=== PATIENT | female | born 1955 | race Caucasian/White ===

== ENCOUNTER → 2016-05-31 | Outpatient (CLI) | payer BC | END | disposition home or self-care (01) | LOC: GMAJ 14:27 | PROVIDERS: ATTEND Family Medicine | DX: E03.9 Hypothyroidism, unspecified (principal) ==

== ENCOUNTER → 2016-08-18 | Outpatient (CLI) | payer BC ==
--- NOTE | 2016-08-18 10:33 | MAM ---
History: Well woman exam. Date of exam: 08/18/2016 Services provided: Bilateral full field digital screening mammography. CAD, the images were reviewed with R2 computer aided detection. FINDINGS: Glandular tissue is scattered glandular contour. Comparison with 2015 exam. No dominant mass, architectural distortion or clustered microcalcification. IMPRESSION: Benign exam Recommendation: Routine annual mammography BIRAD CATEGORY: 2 BENIGN Electronically signed by: Kelsy Toledo MD 08/18/2016 10:32 AM CDT
== END | disposition home or self-care (01) ==
LOC: MAMMO 07:55
PROVIDERS: ATTEND Family Medicine
DX: Z12.31 Encounter for screening mammogram for malignant neoplasm of breast (principal)

== ENCOUNTER → 2016-09-14 | Outpatient (CLI) | payer BC, SELFPAY ==
--- NOTE | 2016-09-14 13:55 | MRI ---
EXAM DESCRIPTION: Lumbar Spine w/o Contrast CLINICAL HISTORY: DISC DISPLACEMENT COMPARISON: None Available. TECHNIQUE: MRI of the lumbar spine is performed according to our usual protocol with axial and sagittal multi sequence imaging. FINDINGS: Normal alignment of the lumbar spine is noted. There is no acute fracture or destructive osseous lesion. The conus medullaris terminates normally. L1-2: Unremarkable L2-3: Unremarkable L3-4: Mild facet degeneration. No spinal canal, neuroforaminal narrowing or considerable disc disease L4-5: Moderate facet degeneration and ligamentum flavum thickening. No posterior disc pathology. No spinal canal or neuroforaminal narrowing. L5-S1: Moderate facet degeneration, left greater than right. No considerable posterior disc pathology. No spinal canal or neuroforaminal narrowing. IMPRESSION: 1. Today's exam demonstrates only facet degeneration from L3-4 through L5-S1. 2. No spinal canal or neuroforaminal narrowing. No considerable posterior disc pathology at any level. Electronically signed by: Jorge Sheldon MD 09/14/2016 1:56 PM CDT
== END | disposition home or self-care (01) ==
LOC: MRI 06:54
PROVIDERS: ATTEND Family Medicine
DX: M51.27 Other intervertebral disc displacement, lumbosacral region (principal)

== ENCOUNTER → 2017-01-05 | Outpatient (CLI) | payer BC | END | disposition home or self-care (01) | LOC: GMAJ 10:39 | PROVIDERS: ATTEND Family Medicine | DX: E03.9 Hypothyroidism, unspecified (principal) ==

== ENCOUNTER → 2017-06-07 | Outpatient (CLI) | payer BC | LOC: GMAJ 10:54 | PROVIDERS: ATTEND Family Medicine | DX: E03.9 Hypothyroidism, unspecified (principal) ==

== ENCOUNTER → 2017-09-26 | Outpatient (CLI) | payer BC | LOC: GMAJS 11:48 | PROVIDERS: ATTEND Physician Assistant | DX: R06.00 Dyspnea, unspecified (principal) ==

== ENCOUNTER → 2017-09-27 | Outpatient (CLI) | payer BC ==
--- NOTE | 2017-09-27 17:35 | MAM ---
EXAM DESCRIPTION: 3D Screening BILATERAL : Digital Mammography. CLINICAL HISTORY: 61 years Female SCREENING . No complaints. No family history of breast cancer. Childbirth. Postmenopausal. Has taken HRT. COMPARISON: 2-D digital screening bilateral study 08/18/2016. Report from prior examination also reviewed. TECHNIQUE: Bilateral CC and MLO projection full-field images, 3-D tomosynthesis digital mammographic technique. CAD not utilized. FINDINGS: The breast parenchymal density pattern is: Almost entirely fatty. No skin thickening or nipple retraction. Bilateral solitary microcalcifications. Left axillary lymph nodes. No focal, stellate mass or density, focal asymmetry , and no suspicious microcalcifications bilaterally. Stable mammograms compared to prior study, taking into account differences in mammographic technique IMPRESSION: BI-RADS CATEGORY: 2 - BENIGN FINDINGS. FOLLOW UP: Routine digital bilateral screening, one year interval from September 2017. Written communication explaining the IMPRESSION and follow-up, will be mailed to the patient and referring health care provider. According to the [employer], yearly mammograms are recommended starting at age 40 and continuing as long as a woman is in good health. Any breast change noted on a breast self-exam should be reported promptly to the patient's healthcare provider. Breast MRI is recommended for women with an approximately 20-25% or greater lifetime risk of breast cancer, including women with a strong family history of breast or ovarian cancer and women who have been treated for Hodgkin's disease. A negative mammographic report should not delay tissue diagnosis in patients with significant clinical history or physical findings. Extremely dense breast tissue limits the sensitivity of digital mammography. Electronically signed by: Juan Sterling MD 09/27/2017 5:33 PM CDT
== END ==
LOC: MAMMO 08:00
PROVIDERS: ATTEND Family Medicine
DX: Z12.31 Encounter for screening mammogram for malignant neoplasm of breast (principal)

== ENCOUNTER → 2017-10-10 | Outpatient (CLI) | payer BC | LOC: GMAJ 14:25 | PROVIDERS: ATTEND Family Medicine | DX: R23.3 Spontaneous ecchymoses (principal) ==

== ENCOUNTER 2017-11-21 09:17 | Emergency (ER) | payer BC ==
[2017-11-21] MEDS ORDERED: DEXAMETHASONE INJ 10 MG/ML VIAL IV ONE (09:22)
[2017-11-21] MEDS ORDERED: diphenhydrAMINE HCL 50 MG/ML VIAL IV ONE (09:23)
[2017-11-21 09:25] VITALS: TEMP 96.9
--- NOTE | 2017-11-21 09:25 | ED.PDOC ---
History of Present Illness - General Chief Complaint: Allergic Reaction Stated Complaint: itching Time Seen by Provider: 11/21/17 09:21 Source: patient Exam Limitations: no limitations - History of Present Illness Initial Comments: Iris Nayak 62 y/o female stated that she had undergone CT contrast study ordered by her pmo business analyst then after procedure she started itching,face feels heavy.No sob/or wheezing. Timing/Duration: 1 hour Severity: moderate Improving Factors: nothing Worsening Factors: other - see hpi Associated Symptoms: other - see hpi Allergies/Adverse Reactions: Allergies CT contrast Allergy (Intermediate, Uncoded 11/21/17 09:25) Hives swelling Review of Systems - Review of Systems Constitutional: States: no symptoms reported Respiratory: States: no symptoms reported Cardiology: States: no symptoms reported Gastrointestinal/Abdominal: States: no symptoms reported Genitourinary: States: no symptoms reported Musculoskeletal: States: no symptoms reported Skin: States: see HPI Neurological: States: no symptoms reported Past Medical History (General) - Patient Medical History Hx Hypertension: Yes Surgical History: appendectomy, cholecystectomy, other - c- section,hysterectomy - Social History Hx Tobacco Use: No Hx Physical Abuse: No Hx Emotional Abuse: No - Activities of Daily Living Patient Lives Alone: No Grooming Ability: Independent Eating (Feeding) Ability: Independent Toileting Ability: Independent - Female History Patient is a Female of Child Bearing Age (10 -59 yrs old): No Patient : No Family Medical History - Family History Mother Living Status: Hx Family Stroke: Yes - parents Physical Exam - Physical Exam General Appearance: Alert, Comfortable, No apparent distress Eye Exam: bilateral normal Ears, Nose, Throat: hearing grossly normal, normal ENT inspection, normal pharynx Neck: non-tender, full range of motion, supple Respiratory: chest non-tender, lungs clear, normal breath sounds, no respiratory distress Cardiovascular/Chest: normal peripheral pulses, regular rate, rhythm, no murmur Peripheral Pulses: radial,right: 2+, radial,left: 2+ Gastrointestinal/Abdominal: non tender, soft, no organomegaly Back Exam: no CVA tenderness, no vertebral tenderness Extremity: non-tender, no pedal edema, no calf tenderness Neurologic: alert, oriented x 3 Skin Exam: normal color, warm/dry Progress - Progress Progress: 11/21/17 09:34 Vital Signs - 8 hr 11/21/17 11/21/17 09:19 09:26 Temperature 96.9 F L Pulse Rate [ 74 62 Apical] Respiratory 18 18 Rate Blood Pressure 131/81 [Left Arm] O2 Sat by Pulse 95 Oximetry 11/21/17 11:52 feeling better;asymptomatic - Results/Orders Results/Orders: Laboratory Results - last 24 hr 11/21/17 11/21/17 09:25 09:25 WBC 7.4 RBC 4.75 Hgb 14.9 Hct 45.2 MCV 95.1 MCH 31.4 H MCHC 33.0 RDW 13.6 Plt Count 311 MPV 8.5 Absolute Neuts (auto) 4.00 Absolute Lymphs (auto) 2.60 Absolute Monos (auto) 0.60 Absolute Eos (auto) 0.10 Absolute Basos (auto) 0.10 Neutrophils % 53.5 Lymphocytes % 35.3 Monocytes % 8.8 Eosinophils % 1.5 Basophils % 0.9 Sodium 138 Potassium 4.3 Chloride 102 Carbon Dioxide 26 Anion Gap 14.3 BUN 9 Creatinine 0.70 BUN/Creatinine Ratio 12.9 Random Glucose 107 H Serum Osmolality 274.8 L Calcium 9.0 Departure - Departure Clinical Impression: Pruritus Allergic reaction to contrast dye Qualifiers: Encounter type: initial encounter Qualified Code(s): T50.8X5A - Adverse effect of diagnostic agents, initial encounter Time of Disposition: 11:54 Disposition: Discharge to Home or Self Care Condition: Fair Departure Forms: ED Discharge - Pt. Copy, Patient Portal Self Enrollment Instructions: Contrast Dye Allergy Diet: other - drink extra fluid Referrals: Marcellus Huizar MD [Primary Care Provider] - 1-2 Weeks Additional Instructions: Return to ER as needed;Continue with Benadryl-25 mg capsule by mouth 3 x a day as needed for itching
[2017-11-21] MEDS ORDERED: SODIUM CHLORIDE 0.9% 1000ML 1,000 ML IVS ONE (09:26)
[2017-11-21 12:01] VITALS: BP 154/59; O2SAT 94
== END 2017-11-21 12:03 | disposition home or self-care (01) ==
LOC: ER 09:17
DX: T50.8X5A Adverse effect of diagnostic agents, initial encounter (principal); L29.9 Pruritus, unspecified
CPT/HCPCS: 36415; 80048; 85025; J1100; J1200; J7030

== ENCOUNTER → 2017-11-21 | Outpatient (CLI) | payer BC ==
--- NOTE | 2017-11-21 11:19 | CT ---
EXAM DESCRIPTION: Abdomen w/Contrast: Computed Tomography. CLINICAL HISTORY: R16 ,R58 COMPARISON: None. TECHNIQUE: Spiral-axial scans at 5.0 mm intervals through the abdomen, after nonionic IV contrast. No oral contrast. Coronal and sagittal 2.0 mm reconstructions. No delayed scans. Within the initial scans were completed, the patient began complaining of swelling and itching in the hands and arms, face neck and upper chest, numbness around jaw, and not feeling well. The technologist noted erythema and hives on the skin of the areas mentioned above. Patient also complained of a scratchy throat. The radiologist was not in the CT suite at the time of this reaction. Has symptoms progressed, the fish technologist and the Chief Clerical Assistant decided to take the patient by wheelchair to the Emergency Department, adjacent to the Imaging Department. IV access was maintained. The patient is admitted to the Emergency Department in stable condition at the time of this report. Please refer to those physician and nursing notes. Total Exam DLP: 743.15 mGy-cm. This exam was performed according to our departmental CT dose-optimization program which includes automated exposure control, adjustment of the mA and/or kV according to patient size and/or use of iterative reconstruction technique; to reduce radiation dose to as low as reasonably achievable (ALARA). FINDINGS: Lung bases and pleura: Bibasilar atelectasis. Minimal pleural thickening left base. Liver, Stomach, Spleen, Adrenal Glands: Minimal wall thickening and band of decreased density, which could represent edema in the wall, distal antrum and pylorus on axial images 24 through 27. Solid organs Unremarkable. Pancreas, Gallbladder, Ducts: Surgical clips in the gallbladder fossa with no fluid. Kidneys: Negative. Mesentery: No free air or ascites. No fatty stranding or fascial thickening. Aorta: Minimal distal atherosclerotic calcification with no stenosis or aneurysm. Small Bowel: Minimal edema in the arora of the distal ileum seen to the right of midline, and right lower quadrant on axial series 2, images 45-67. More proximal ileum and jejunum is unremarkable with no obstruction or significant air-fluid levels. Terminal Ileum/Cecum: Minimal edema in the arora of the TI and cecum but no distention or obstruction. Slightly increased density of the surrounding fatty tissue. Distal cecum and appendix were not visible. Colon: Edema in the arora of the ascending colon and hepatic flexure to the level of the proximal transverse colon. Minimal surrounding increased fatty density. Remainder of the visualized colon shows no edema in the wall and no surrounding fatty reaction. Spine: Anterior advanced spondylosis T11-12. Minimal spondylosis in the other included segments of the thoracic spine Abdominal Wall/Back Soft Tissues: Small nodules in the superior adipose tissue of the included buttocks, one of these is calcified on the right. IMPRESSION: 1. Segments of bowel wall thickening with edema: pylorus of the stomach, distal ileum, terminal ileum, and proximal colon. These may represent nonspecific inflammatory changes but should also consider Crohn's disease, ulcerative colitis, or other inflammatory bowel processes. No soft tissue masses, no abscess formation, no free fluid or free air. No bowel obstruction 2. Bibasilar atelectasis. 3. IV contrast reaction as described. Electronically signed by: Juan Sterling MD 11/21/2017 11:18 AM CDT
== END ==
LOC: CT 08:10
PROVIDERS: ATTEND Internal Medicine Hematology & Oncology
DX: R16.0 Hepatomegaly, not elsewhere classified (principal); R58 Hemorrhage, not elsewhere classified; J98.11 Atelectasis

== ENCOUNTER 2018-02-21 05:39 | Day surgery (SDC) | payer BC ==
[2018-02-21] MEDS ORDERED: LACTATED RINGERS 1,000 ML ONE (05:58)
[2018-02-21] MEDS ORDERED: PROPOFOL 200 MG/20 ML VIAL IV ONE (07:00)
[2018-02-21] MEDS ORDERED: LIDOCAINE 1% 10 ML VIAL INJ ONE (07:00)
--- NOTE | 2018-02-21 09:51 | OP ---
DATE OF PROCEDURE: 02/21/18 PREPROCEDURE DIAGNOSIS: 1. Dysphagia. 2. Colorectal cancer screening. POSTPROCEDURE DIAGNOSIS: 1. Esophagitis, LA Grade A. 2. Empiric Savary dilation. 3. Erythematous gastropathy. 4. Gastric ulcer in the prepyloric region. 5. Non-bleeding internal hemorrhoids. 6. Colonic polyps. PROCEDURE: 1. Esophagogastroduodenoscopy. 2. Colonoscopy. SURGEON: Taurus Medrano MD COMPLICATIONS: No immediate complications. SEDATION: The patient was sedated via IV propofol by the Anesthesia Department. CONSENT: Prior to the procedure, risks, benefits and alternatives to the therapy were discussed with the patient. The risks included bleeding, infection , perforation and . The patient agreed to the procedure and signed a consent. PREPROCEDURE ANESTHESIA ASSESSMENT: An examination revealed no contraindication to sedation. Airway examination demonstrated a Mallampati class type 2, ASA grade assessment type 2. Throughout the procedure, the patient's blood pressure, pulse and oxygen saturation were monitored continuously. EGD: The patient was placed in the left lateral decubitus position. Bite block was placed in the mouth between the teeth. The Olympus endoscope was introduced through the oropharynx, esophagus, stomach and the second portion of the duodenum. The scope was retracted and the mucosa visualized. The entirety of the exam was performed under direct visualization. Retroflexion was performed in the stomach. The patient tolerated the procedure well. FINDINGS: 1. Mild esophagitis was seen at the gastroesophageal junction, LA Grade A. 2. Otherwise, normal esophagus. Biopsies were obtained with cold forceps of the distal and proximal esophagus to rule out eosinophilic esophagitis. Empiric dilation was performed up 20 mm Savary with only moderate resistance. This was done using a Savary guidewire that was advanced through the scope. The scope was reintroduced for assessment of the esophagus with only minimal evidence of bleeding likely related to biopsy sites. 3. Slight moderate to severe erythema in the gastric antrum, biopsied with cold forceps. 4. Small superficial gastric ulcer was seen in the prepyloric region. No active bleeding. Biopsies were obtained with cold forceps. 5. Normal duodenum. Biopsies were obtained from the second portion and duodenal bulb. COLONOSCOPY: The patient was placed in the left lateral decubitus position and a rectal examination was performed. The rectal examination was within normal limits. The Olympus colonoscope was passed in the anus, rectum, traversing the colon to the level of the cecum as identified by the appendiceal orifice. The scope was retracted and the mucosa was visualized. The entirety of the exam was performed with direct visualization. Retroflexion was performed in the rectum. Preparation quality was good. The withdrawal time was greater than 6 minutes. The patient tolerated the procedure well. FINDINGS: 1. Multiple colonic polyps were found in the cecum, ascending colon and transverse colon. The first two measured 3 mm and they were removed with cold forceps. The polyp in the transverse colon measured 5 mm and was removed with a cold snare. All polyps were retrieved. 2. Non-bleeding internal hemorrhoids. RECOMMENDATIONS: 1. Return the patient home. 2. Resume previous diet. 3. Repeat colonoscopy no later than 3 years. 4. Followup pathology results. 5. Start omeprazole 40 mg p.o. b.i.d. for 8 weeks. 6. Consider repeating upper endoscopy to assure healing of gastric ulcer. 7. Return to my office in the following 2 weeks. #[id number] [facility] NETWORKYelena
[2018-02-21 10:23] VITALS: BP 182/97; TEMP 98.6; O2SAT 97
== END 2018-02-21 10:15 | disposition home or self-care (01) ==
LOC: AMB 05:39
PROVIDERS: ATTEND Internal Medicine Gastroenterology
DX: Z12.11 Encounter for screening for malignant neoplasm of colon (principal); D12.2 Benign neoplasm of ascending colon; D12.0 Benign neoplasm of cecum; K63.5 Polyp of colon; K64.8 Other hemorrhoids; K29.50 Unspecified chronic gastritis without bleeding; K20.9 Esophagitis, unspecified; K29.70 Gastritis, unspecified, without bleeding; K25.9 Gastric ulcer, unspecified as acute or chronic, without hemorrhage or perforation; E03.9 Hypothyroidism, unspecified; R16.1 Splenomegaly, not elsewhere classified; I10 Essential (primary) hypertension; J45.909 Unspecified asthma, uncomplicated; E66.01 Morbid (severe) obesity due to excess calories; Z91.041 Radiographic dye allergy status; Z68.38 Body mass index [BMI] 38.0-38.9, adult; Z79.899 Other long term (current) drug therapy
CPT/HCPCS: 00813; 43239; 43248; 45380; 45385; J3490; J7120

== ENCOUNTER → 2018-03-09 | Outpatient (CLI) | payer BC | LOC: GMAJ 14:29 | PROVIDERS: ATTEND Family Medicine | DX: Z00.00 Encounter for general adult medical examination without abnormal findings (principal); M25.50 Pain in unspecified joint ==

== ENCOUNTER → 2018-10-02 | Outpatient (CLI) | payer BC ==
--- NOTE | 2018-10-03 19:50 | MAM ---
EXAM DESCRIPTION: 3D Screening BILATERAL : Digital Mammography. CLINICAL HISTORY: 62 years Female ANNUAL SCREENING . No complaints. No personal or family history of breast cancer. Childbirth. Premenopausal. Currently on HRT. Bilateral breast reduction. Lifetime risk of developing breast cancer (Tyrer-Cuzick model)(%): 6.8. COMPARISON: Bilateral screening digital breast tomosynthesis 09/27/2017.. TECHNIQUE: Bilateral CC and MLO projection full-field images, digital tomosynthesis mammographic technique. Bilateral digital 2-D full-field MLO images. CAD not available for tomosynthesis or 2-D images. FINDINGS: The breast parenchymal density pattern is: Almost entirely fatty. No skin thickening or nipple retraction. Focal asymmetry approximately 3 cm from the nipple at the 8:00 position, slightly enlarged since the prior study. No associated microcalcifications. Bilateral solitary microcalcifications. Left axillary lymph nodes. No new focal, stellate mass or density, focal asymmetry , and no suspicious microcalcifications left breast. Stable mammograms compared to prior study. Taking into account, differences in mammographic technique. IMPRESSION: BI-RADS CATEGORY: 0 - INCOMPLETE- Need additional imaging evaluation. FOLLOW-UP: Recall for additional imaging: . Full-field right breast tomosynthesis LM projection. Targeted right breast ultrasound in the region of interest.. Written communication concerning the IMPRESSION and Follow-up, will be mailed to the patient and referring health care provider. Electronically signed by: Juan Sterling MD 10/03/2018 7:48 PM CDT
== END ==
LOC: MAMMO 08:00
PROVIDERS: ATTEND Family Medicine
DX: Z12.31 Encounter for screening mammogram for malignant neoplasm of breast (principal)

== ENCOUNTER → 2018-11-20 | Outpatient (CLI) | payer BC | LOC: GMAJ 11:40 | PROVIDERS: ATTEND Family Medicine | DX: E03.9 Hypothyroidism, unspecified (principal); I10 Essential (primary) hypertension ==

== ENCOUNTER → 2018-12-13 | Outpatient (CLI) | payer BC | LOC: GMAJ 14:44 | PROVIDERS: ATTEND Family Medicine | DX: E03.9 Hypothyroidism, unspecified (principal); I10 Essential (primary) hypertension ==

== ENCOUNTER → 2018-12-19 | Outpatient (CLI) | payer BC ==
--- NOTE | 2018-12-20 10:23 | MAM ---
EXAM DESCRIPTION: Breast,Right (accession [id number]), Diagnostic Mammo,Right (accession [id number]): Ultrasound CLINICAL HISTORY: 63 yearsFemaleABNORMAL SCREENING . Focal asymmetry right breast. COMPARISON: Other TECHNIQUE: Right breast LM projection full-field images, digital mammographic tomosynthesis technique. Right breast 2-D digital full-field images. LM projection. CAD not utilized. . Transcutaneous scanning of the right breast utilizing gonzalez-scale and Doppler modes. Scanning performed by the audio recording engineer and Dr. Sterling. FINDINGS: The breast parenchymal density pattern is: Almost entirely fatty. No skin thickening or nipple retraction small focal asymmetry again noted in the lower outer quadrant of the anterior right breast. No microcalcifications. Ultrasound: Scanning of the lateral quadrant of the anterior right breast. Mostly fatty echotexture. No dominant solid mass or distinct cyst. No parenchymal edema or large calcifications. No overlying skin changes. Breast density most likely an island of fibroglandular tissue. IMPRESSION: Benign exam. BIRAD CATEGORY: 2 BENIGN FINDINGS. RECOMMENDATIONS: FOLLOW UP: Return to routine digital bilateral mammographic screening, one year interval from September 2018. Written communication explaining the IMPRESSION and follow-up, will be mailed to the patient and referring health care provider. The FINDINGS and the FOLLOW-UP plan were reviewed in person with the patient after the examination. According to the [employer], yearly mammograms are recommended starting at age 40 and continuing as long as a woman is in good health. Any breast change noted on a breast self-exam should be reported promptly to the patient's healthcare provider. Breast MRI is recommended for women with an approximately 20-25% or greater lifetime risk of breast cancer, including women with a strong family history of breast or ovarian cancer and women who have been treated for Hodgkin's disease. A negative mammographic report should not delay tissue diagnosis in patients with significant clinical history or physical findings. Extremely dense breast tissue limits the sensitivity of digital mammography. Electronically signed by: Juan Sterling MD 12/20/2018 10:22 AM CDT
== END ==
LOC: MAMMO 07:59
PROVIDERS: ATTEND Family Medicine
DX: R92.8 Other abnormal and inconclusive findings on diagnostic imaging of breast (principal)

== ENCOUNTER → 2019-10-30 | Outpatient (CLI) | payer BC | LOC: GMAJ 14:51 | PROVIDERS: ATTEND Family Medicine | DX: E03.9 Hypothyroidism, unspecified (principal); I10 Essential (primary) hypertension ==

== ENCOUNTER → 2020-02-21 | Outpatient (CLI) | payer BC | LOC: GMAM 14:12 | PROVIDERS: ATTEND Family Medicine | DX: J06.9 Acute upper respiratory infection, unspecified (principal) ==

== ENCOUNTER → 2020-03-03 | Outpatient (CLI) | payer BC | LOC: GMAJ 10:31 | PROVIDERS: ATTEND Family Medicine | DX: E03.8 Other specified hypothyroidism (principal); I10 Essential (primary) hypertension ==